=== PATIENT | female | born 1950 | race Caucasian/White ===

== ENCOUNTER 2018-11-15 11:34 | Inpatient (IN) | payer OTHER ==
[~2018-11-15] VITALS: Ht 165.1 cm; Wt 121.1 kg
[2018-11-15] MEDS ORDERED: NOVOLOG FL100 UNIT/M SUBQ ×2 (11:47→11:48)
[2018-11-15] MEDS ORDERED: METFORMIN HCL500 MG PO (11:47)
[2018-11-15] MEDS ORDERED: TRESIBA FL200 UNIT/1 SUBQ (11:48)
[2018-11-15] MEDS ORDERED: CRESTOR20 MG PO (11:49)
[2018-11-15] MEDS ORDERED: FENOFIBRATE200 MG PO (11:49)
[2018-11-15] MEDS ORDERED: COZAAR100 MG PO (11:49)
[2018-11-15] MEDS ORDERED: LASIX 40 MG TAB40 M2 PO (11:50)
[2018-11-15] MEDS ORDERED: ISOSORBIDE MONO60 M1 PO (11:50)
[2018-11-15] MEDS ORDERED: NITROGLYCERIN0.4 MG SUBLING (11:50)
[2018-11-15] MEDS ORDERED: DIPHENHIST50 MG PO (11:51)
[2018-11-15] MEDS ORDERED: VITAMIN D35000 UNI1 PO (11:51)
[2018-11-15] MEDS ORDERED: TOPROL XL50 MG PO (11:51)
[2018-11-15] MEDS ORDERED: ASPIR 8181 MG PO (11:51)
[2018-11-15] MEDS ORDERED: CVS DAILY GUM200 MCG PO (11:53)
[2018-11-15 12:16] LABS: ABSOLUTE BASOPHILS 0.1 thou/uL (0.0-0.2); ABSOLUTE EOSINOPHILS 0.2 thou/uL (0.0-0.7); ABSOLUTE LYMPHOCYTES 2.7 thou/uL (0.8-5.3); ABSOLUTE MONOCYTES 0.5 thou/uL (0.0-1.2); ABSOLUTE NEUTROPHILS 4.7 thou/uL (1.6-8.1); BASOPHILS 0.7 %; HEMATOCRIT 40.3 % (37.0-47.0); HEMOGLOBIN 13.3 gm/dL (12.0-15.0); LYMPHOCYTES 32.6 %; MCH 29.6 pg (26.0-34.0); MCV 89.9 fL (80.0-100.0); MONOCYTES 6.4 %; MPV 8.1 fl. (7.2-11.1); NUCLEATED RBCS 0 /100WBC; PLATELET COUNT* 257 thou/uL (150-400); POLYS 58.3 %; RBC 4.48 mil/uL (4.20-5.00); RDW-CV 13.9 % (10.5-14.5); WBC 8.1 thou/uL (4.0-11.0)
[2018-11-15 12:23] LABS: ANION GAP 12 mmol/L (7-16); BUN 22 mg/dL (7-18); CALCIUM 10.1 mg/dL (8.5-10.1); CHLORIDE 102 mmol/L (98-107); CO2 26 mmol/L (21-32); CREATININE 0.9 mg/dL (0.6-1.3); GLUCOSE 243 mg/dL (70-99); POTASSIUM 3.8 mmol/L (3.5-5.1); SODIUM 140 mmol/L (136-145)
[2018-11-15 12:34] LABS: ALKALINE PHOSPHATASE 114 U/L (46-116); APTT 29.4 Seconds (25.0-31.3); NT-PRO BRAIN NAT PEPTIDE 121 pg/mL (<300); PROTIME 10.1 Seconds (9.20-11.50); SGOT 27 U/L (15-37); SGPT 41 U/L (30-65); TOTAL BILIRUBIN 0.5 mg/dL (<0.1-1.0); TROPONIN-I LEVEL <0.06 ng/mL (<0.06)
[2018-11-15 12:38] LABS: BE -1.7 mmol/L (-2 to +3); PCO2 26.4 mmHg (35.0-45.0); PO2 94.1 mmHg (75.0-100.0); pH 7.497 (7.340-7.450)
[2018-11-15 12:50] LABS: URINE BILIRUBIN NEGATIVE (Negative); URINE BLOOD NEGATIVE (Negative); URINE CLARITY CLEAR; URINE COLOR YELLOW; URINE GLUCOSE-RANDOM 2+ (Negative); URINE KETONES NEGATIVE (Negative); URINE LEUKOCYTES-REFLEX NEGATIVE (Negative); URINE NITRITE-REFLEX NEGATIVE (Negative); URINE PROTEIN NEGATIVE (Negative); URINE SPECIFIC GRAVITY 1.015 (1.005-1.030); URINE UROBILINOGEN 0.2 E.U./dl (0.2-1.0)
--- NOTE | 2018-11-15 15:55 | EKG ---
[place] [address] ELECTROCARDIOGRAM REPORT Name: ISAIAS GARNICA Room: [place] [address] ADM IN [facility]#: [id number] Admission: 11/15/18 Attend Phys: Chaitanya Uriostegui MD Discharge: Date of : 50 Report #: [id number] THIS REPORT FOR: //name// [facility] ED Test Date: 2018-11-15 Test Time: 11:44:46 Pat Name: ISAIAS GARNICA Department: Room: [facility] Gender: F Signing Agent: : 1950 Requested By: Taurus Najera Order Number: [id number] MD: Duane Cortes Measurements Intervals [place] Rate: 81 P: 38 CA: 165 QRS: -57 QRSD: 103 T: 58 QT: 378 QTc: 439 Interpretive Statements Sinus rhythm Left anterior fascicular block Abnormal R-wave progression, late transition No previous ECG available for comparison Electronically Signed On 11-15-2018 15:54:53 CDT by Duane Cortes [email or web address] <ELECTRONICALLY SIGNED> By: Duane Cortes MD, [facility] 11/15/18 1554 1144 1144 Duane Cortes MD, [facility] /EPI
[2018-11-15 18:03] VITALS: BP 143/68
[2018-11-15 19:55] VITALS: BP 149/80
[2018-11-16] VITALS: BP 168/76
[2018-11-16 03:50] VITALS: BP 144/67
[2018-11-16 05:26] LABS: ABSOLUTE LYMPHOCYTES 2.7 thou/uL (0.8-5.3); ABSOLUTE MONOCYTES 0.7 thou/uL (0.0-1.2); ABSOLUTE NEUTROPHILS 7.4 thou/uL (1.6-8.1); BASOPHILS 0.4 %; HEMATOCRIT 39.9 % (37.0-47.0); HEMOGLOBIN 12.8 gm/dL (12.0-15.0); LYMPHOCYTES 24.9 %; MCH 29.1 pg (26.0-34.0); MCHC 32.2 g/dL (28.0-37.0); MCV 90.4 fL (80.0-100.0); MONOCYTES 6.1 %; MPV 9.1 fl. (7.2-11.1); NUCLEATED RBCS 0 /100WBC; PLATELET COUNT* 275 thou/uL (150-400); POLYS 68.6 %; RBC 4.41 mil/uL (4.20-5.00); WBC 10.8 thou/uL (4.0-11.0)
[2018-11-16 05:45] LABS: CALCIUM 9.8 mg/dL (8.5-10.1); CREATININE 0.7 mg/dL (0.6-1.3); POTASSIUM 3.6 mmol/L (3.5-5.1)
[2018-11-16 08:00] VITALS: BP 160/70
--- NOTE | 2018-11-16 13:26 | 2DMMODE ---
[place] [address] 2 D/M-MODE ECHOCARDIOGRAM Name: ISAIAS GARNICA Room: [address] IN [facility]#: [id number] Admission: 11/15/18 Attend Phys: Chaitanya Uriostegui, Discharge: Date of : 50 Date of Service: 11/16/18 1325 Report #: [id number] THIS REPORT FOR: //name// APPROVED REPORT Study performed: 11/16/2018 12:09:52 EXAM: Comprehensive 2D, Doppler, and color-flow Echocardiogram Patient Location: In-Patient Room #: [facility] Status: routine BSA: 2.18 HR: 66 bpm BP: 160/70 mmHg Rhythm: NSR Other Information Study Quality: Good Indications Pulmonary Embolism 2D Dimensions IVSd: 11.15 (7-11mm) LVOT Diam: 21.91 (18-24mm) LVDd: 50.31 mm PWd: 10.39 (7-11mm) Ascending Ao: 34.26 (22-36mm) LVDs: 36.56 (25-40mm) Aortic Root: 37.42 mm Volumes Left Atrial Volume (Systole) LA ESV Index: 29.10 mL/m2 Aortic Valve AoV Peak Garland.: 1.14 m/s AO Peak Gr.: 5.17 mmHg LVOT Max P.88 mmHg AO Mean Gr.: 3.25 mmHg LVOT Mean P.42 mmHg LVOT Max V: 0.85 m/s AO V2 VTI: 19.44 cm LVOT Mean V: 0.55 m/s YASIR (VTI): 3.58 cm2 LVOT V1 VTI: 18.44 cm Mitral Valve E/A Ratio: 0.70 MV Decel. Time: 327.37 ms MV E Max Garland.: 0.52 m/[place] [address] 2 D/M-MODE ECHOCARDIOGRAM Name: ISAIAS GARNICA [place] Room: [address] IN [facility]#: [id number] Admission: 11/15/18 Attend Phys: Chaitanya Uriostegui, Discharge: Date of : 50 Date of Service: 11/16/18 1325 Report #: [id number] MV PHT: 94.94 ms MVA (PHT): 2.32 cm2 TDI E/Lateral E': 5.20 E/Medial E': 5.78 Medial E' Garland.: 0.09 m/s Lateral E' Garland.: 0.10 m/s Pulmonary Valve PV Peak Garland.: 1.06 m/s PV Peak Gr.: 4.50 mmHg Tricuspid Valve RAP Estimate: 5.00 mmHg TR Peak Gr.: 15.94 mmHg RVSP: 21.00 mmHg PA Pressure: 21.00 mmHg Left Ventricle The left ventricle is normal size. There is normal LV segmental wall motion. Mild concentric left ventricular hypertrophy. Left ventricular systolic function is normal. The left ventricular ejection fraction is within the normal range. LVEF is 55-60%. Grade I - abnormal relaxation pattern. Right Ventricle The right ventricle is normal size. The right ventricular systolic function is normal. Atria The left atrium size is normal. The right atrium size is normal. Aortic Valve Mild aortic valve sclerosis. No aortic regurgitation is present. There is no aortic valvular stenosis. Mitral Valve The mitral valve is normal in structure. There is no mitral valve regurgitation noted. No evidence of mitral valve stenosis. Tricuspid Valve The tricuspid valve is normal in structure. Trace tricuspid regurgitation. No pulmonary hypertension. Pulmonic Valve The pulmonary valve is normal in structure. [place] [address] 2 D/M-MODE ECHOCARDIOGRAM Name: ISAIAS GARNICA Room: [address]#: [id number] Admission: 11/15/18 Attend Phys: Chaitanya Uriostegui, Discharge: Date of : 50 Date of Service: 11/16/18 1325 Report #: [id number] Great Vessels The aortic root is normal in size. IVC is not visualized. Pericardium There is no pericardial effusion. <Conclusion> The left ventricle is normal size. Mild concentric left ventricular hypertrophy. Left ventricular systolic function is normal. The left ventricular ejection fraction is within the normal range. LVEF is 55-60%. Grade I - abnormal relaxation pattern. The right ventricle is normal size. The left atrium size is normal. Mild aortic valve sclerosis. No aortic regurgitation is present. There is no aortic valvular stenosis. The mitral valve is normal in structure. The tricuspid valve is normal in structure. There is no pericardial effusion. There is normal LV segmental wall motion. <ELECTRONICALLY SIGNED> By: Suman Hernadez MD, [facility] 11/16/18 1325 1325 1325 Suman Hernadez MD, FACC /INF
[2018-11-16 16:31] VITALS: BP 119/57
[2018-11-16 20:00] VITALS: BP 126/58
[2018-11-17] VITALS: BP 146/73
[2018-11-17 03:48] VITALS: BP 149/69
[2018-11-17 08:00] VITALS: BP 131/87
[2018-11-17 11:38] VITALS: BP 131/71
[2018-11-17 16:00] VITALS: BP 131/70
[2018-11-17 20:00] VITALS: BP 115/79
[2018-11-18] VITALS: BP 135/71
[2018-11-18 03:59] VITALS: BP 157/71
[2018-11-18 08:00] VITALS: BP 138/69
[2018-11-18] MEDS ORDERED: XARELTO15 MG PO (11:12)
[2018-11-18] MEDS ORDERED: XARELTO20 MG PO (11:13)
[2018-11-18] MEDS ORDERED: PROTONIX40 M1 PO (11:16)
[2018-11-18 11:17] VITALS: BP 138/69
[2018-11-18] MEDS ORDERED: CEFDINIR300 MG PO (11:17)
== END 2018-11-18 15:47 | disposition home or self-care (01) | DRG 175 ==
LOC: M.ERS 11:34 → M.2W 13:40 → M.TBA-ER 13:40 → M.2W 18:24
PROVIDERS: Family Medicine; ADMIT Internal Medicine
DX: I26.99 Other pulmonary embolism without acute cor pulmonale (principal); J96.00 Acute respiratory failure, unspecified whether with hypoxia or hypercapnia; Z68.41 Body mass index [BMI] 40.0-44.9, adult; E11.9 Type 2 diabetes mellitus without complications; I10 Essential (primary) hypertension; J20.9 Acute bronchitis, unspecified; J32.9 Chronic sinusitis, unspecified; E66.01 Morbid (severe) obesity due to excess calories; Z79.82 Long term (current) use of aspirin; Z79.899 Other long term (current) drug therapy; I25.2 Old myocardial infarction; Z95.5 Presence of coronary angioplasty implant and graft; Z88.8 Allergy status to other drugs, medicaments and biological substances

== ENCOUNTER 2020-02-10 15:46 | Inpatient (IN) | payer MEDICARE ==
[~2020-02-10] VITALS: Ht 170.2 cm; Wt 109.8 kg
--- NOTE | ~2020-02-10 | PROC ---
[address] [address] PROCEDURE REPORT Name: ISAIAS GARNICA Room: [address] IN M.R.#: [id number] Admission: 02/10/20 Attend Phys: Gina Delarosa Discharge: 02/14/20 Date of : 50 Report #: [id number] THIS REPORT FOR: //name// cc: Anastasia Medina MD, Paula V. MD ~ THIS REPORT FOR: //name// For GI report, please see the Provation report in Perceptive 7 content. By: [facility]6Medical Records Staff [facility] /PAUL
[~2020-02-10 15:46] MED LIST: ASPIR 8181 MG PO; CEFDINIR300 MG PO; COZAAR100 MG PO; CRESTOR20 MG PO; CVS DAILY GUM200 MCG PO; DIPHENHIST50 MG PO; FENOFIBRATE200 MG PO; ISOSORBIDE MONO60 M1 PO; LASIX 40 MG TAB40 M2 PO; METFORMIN HCL500 MG PO; NITROGLYCERIN0.4 MG SUBLING; NOVOLOG FL100 UNIT/M SUBQ; PROTONIX40 M1 PO; TOPROL XL50 MG PO; TRESIBA FL200 UNIT/1 SUBQ; VITAMIN D35000 UNI1 PO; XARELTO15 MG PO; XARELTO20 MG PO
[2020-02-10 15:54] VITALS: BP 180/88
[2020-02-10] MEDS ORDERED: SPIRONOLACTONE25 M1 PO (16:01)
[2020-02-10] MEDS ORDERED: IBUPROFEN 800800 M1 PO (16:01)
[2020-02-10] MEDS ORDERED: NEURONTIN 300M300 M2 PO (16:01)
[2020-02-10] MEDS ORDERED: VITAMIN C125 MG PO (16:02)
[2020-02-10] MEDS ORDERED: BENADRYL25 MG PO (16:02)
[2020-02-10 16:25] LABS: ABSOLUTE BASOPHILS 0.1 thou/uL (0.0-0.2); ABSOLUTE EOSINOPHILS 0.1 thou/uL (0.0-0.7); ABSOLUTE LYMPHOCYTES 1.9 thou/uL (0.8-5.3); ABSOLUTE MONOCYTES 0.4 thou/uL (0.0-1.2); ABSOLUTE NEUTROPHILS 3.9 thou/uL (1.6-8.1); BASOPHILS 0.8 %; EOSINOPHILS 1.9 %; HEMOGLOBIN 13.1 gm/dL (12.0-15.0); LYMPHOCYTES 29.2 %; MCH 28.5 pg (26.0-34.0); MCHC 32.8 g/dL (28.0-37.0); MCV 86.8 fL (80.0-100.0); MONOCYTES 6.9 %; MPV 7.3 fl. (7.2-11.1); NUCLEATED RBCS 0 /100WBC; PLATELET COUNT* 346 thou/uL (150-400); POLYS 61.2 %; RDW-CV 14.9 % (10.5-14.5); WBC 6.4 thou/uL (4.0-11.0)
[2020-02-10 16:31] LABS: CALCIUM 9.3 mg/dL (8.5-10.1); CREATININE 0.7 mg/dL (0.6-1.3); POTASSIUM 3.9 mmol/L (3.5-5.1)
[2020-02-10 16:41] LABS: APTT 26.4 Seconds (25.0-31.3); PROTIME 10.7 Seconds (9.20-11.50)
[2020-02-10 16:44] LABS: ALBUMIN 3.3 g/dL (3.4-5.0); CK-MB MASS 0.9 ng/mL (<0.5-3.6); MAGNESIUM 1.6 mg/dL (1.8-2.4); TOTAL BILIRUBIN 0.4 mg/dL (<0.1-1.0); TOTAL PROTEIN 7.9 g/dL (6.4-8.2)
[2020-02-10 19:55] VITALS: BP 161/85
[2020-02-10 20:09] VITALS: BP 170/98
[2020-02-10 23:24] VITALS: BP 154/71
[2020-02-11 04:00] VITALS: BP 146/62
[2020-02-11 08:00] VITALS: BP 105/45
[2020-02-11 12:37] LABS: % SATURATION 18 % (20-39); IRON 56 ug/dL (50-175)
[2020-02-11 13:01] VITALS: BP 161/74
--- NOTE | 2020-02-11 13:01 | EKG ---
[place] [address] ELECTROCARDIOGRAM REPORT Name: ISAIAS GARNICA Room: [address] IN [facility].#: [id number] Admission: 02/10/20 Attend Phys: Braydon Aragon Discharge: Date of : 50 Date of Service: 02/10/20 1551 Report #: [id number] THIS REPORT FOR: //name// [facility] ED Test Date: 2020-02-10 Test Time: 15:51:07 Pat Name: ISAIAS GARNICA Department: Room: [facility] Gender: F Honing Machine Operator Tool: SURINDER : 1950 Requested By: Taurus Najera Order Number: [id number] MD: Duane Cortes Measurements Intervals [place] Rate: 99 P: 72 MN: 155 QRS: -46 QRSD: 102 T: 68 QT: 340 QTc: 437 Interpretive Statements Sinus tachycardia Ventricular premature complex Left anterior fascicular block Minimal ST depression, lateral leads Baseline wander in lead(s) V1,V4 Compared to ECG 11/15/2018 11:44:46 Ventricular premature complex(es) now present ST (T wave) deviation now present Sinus rhythm no longer present Electronically Signed On 02-11-2020 13:01:00 CDT by Duane Cortes [email or web address] <ELECTRONICALLY SIGNED> By: Duane Cortes MD, [facility] 02/11/20 1301 1551 1551 Duane Cortes MD, FAC /EPI
--- NOTE | 2020-02-11 13:47 | CON ---
[address] [address] CONSULTATION Name: ISAIAS GARNICA Room: [address] IN .R.#: [id number] Admission: 02/10/20 Attend Phys: Gina Delarosa Discharge: Date of : 50 Report #: [id number] THIS REPORT FOR: //name// cc: Anastasia Medina MD, Paula V. MD ~ THIS REPORT FOR: //name// CC: Braydon GOOD DO INDICATION: Chest discomfort. HISTORY OF PRESENT ILLNESS: The patient is a very pleasant 69-year-old with a history of myocardial infarction in 02/2010 at which time she had a drug-eluting stent placed to the circumflex coronary artery. She had nonocclusive disease noted otherwise. She has followed regularly with Cardiology since. Three years ago in the episode of recurrent pain, she was placed on Ranexa transiently. A stress test at that time was unremarkable. She reports having angiography on 2 occasions since her initial stent placement, the most recent 7 years ago, which showed that the nonocclusive disease was stable and the stent is widely patent. There is no history of heart failure. Risk factors include type 2 diabetes mellitus, hypertension, dyslipidemia, and family history. She is a lifelong nonsmoker. The patient presented to the hospital with decreased urine output, increased abdominal girth and swelling as well as lower extremity swelling and chest pressure with some radiation to the left arm. The patient was given a sublingual nitroglycerin in the Emergency Room with partial relief of her discomfort. She was then given morphine with complete relief of her pain. She has had no recurrent pain overnight. Her EKG was unremarkable. Serial troponins are unremarkable. Abdominal ultrasound and CT suggests the possibility of cirrhosis from fatty liver. She does have ascites. PAST MEDICAL HISTORY: 1. Coronary artery disease as outlined above. 2. Hyperlipidemia. 3. Hypertension. 4. Type 2 diabetes mellitus. 5. History of pulmonary embolism 2019. 6. History of left ankle fracture with pinning. FAMILY HISTORY: Positive for coronary artery disease in the [place] [address] CONSULTATION Name: ISAIAS GARNICA Room: [address]#: [id number] Admission: 02/10/20 Attend Phys: Gina Delarosa Discharge: Date of : 50 Report #: [id number] SOCIAL HISTORY: The patient is a lifelong nonsmoker. She does not drink alcohol. ALLERGIES: LISINOPRIL, WHICH CAUSES A COUGH. HOME MEDICATIONS: Losartan 100 mg daily, furosemide 40 mg daily, metoprolol succinate 50 mg daily, aspirin 81 mg daily, spironolactone 25 mg daily, Neurontin 300 mg b.i.d., ibuprofen 800 mg b.i.d., Benadryl 25 mg p.r.n., vitamin C 125 mg daily, metformin 500 mg as directed, sliding scale insulin a.c. and at bedtime, Tresiba insulin 55 units subcutaneous b.i.d., fenofibrate 200 mg daily, Crestor 20 mg daily, Imdur 30 mg daily, Nitrostat sublingual p.r.n., vitamin D3 5000 units daily, multivitamin with folate 2 tablets daily. REVIEW OF SYSTEMS: A 14-point review of systems is positive for seizures as a child, chest discomfort and dyspnea on exertion, lower extremity edema, diabetes, history of PE in 11/2018, seasonal medical allergies outlined above, arthritis. Otherwise, 14-point review of systems was unremarkable. PHYSICAL EXAMINATION: VITAL SIGNS: Blood pressure 146/62, pulse is 73. GENERAL: This is a pleasant female in no distress. Mood and affect appropriate. HEENT: Head is normocephalic, atraumatic. Extraocular muscles intact. Mucous membranes moist. NECK: Shows no jugular venous distention. There are no carotid bruits. CHEST: Reveals clear lung cotton without wheezes or rales. CARDIOVASCULAR: Reveals a regular rhythm with no gallop or murmur. ABDOMEN: Reveals a protuberant abdomen with fluid wave. No tenderness. EXTREMITIES: Shows 1-2+ edema to the knees bilaterally. SKIN: Dry. LABORATORY DATA: A 12-lead EKG shows sinus rhythm without acute ST or T-wave abnormality. Labs are reviewed. Troponins are unremarkable x 3 sets. IMPRESSION AND RECOMMENDATIONS: 1. Chest pain without findings to suggest acute coronary syndrome. We will proceed with echocardiogram and noninvasive stress testing. Further intervention will be pending the results of that study. 2. Coronary artery disease. Continue aspirin and risk factor modification. 3. Hypertension. Blood pressure adequately controlled on home regimen at this time. 4. Dyslipidemia. The patient's lipid profile in November showed a total cholesterol 106, triglycerides 124, HDL 34, and LDL 47. Continue current regimen. [address] [place] [address] CONSULTATION Name: ISAIAS GARNICA Room: [address] IN .R.#: [id number] Admission: 02/10/20 Attend Phys: Gina Delarosa Discharge: Date of : 50 Report #: [id number] 5. Ascites and volume overload, possibly due to liver failure. The patient is being evaluated by Gastroenterology. <ELECTRONICALLY SIGNED> By: Duane Cortes MD, FACC 02/11/20 1347 1158 1246Duane Cortes MD, FACC /nt
[2020-02-11 16:11] VITALS: BP 153/71
[2020-02-11 19:30] VITALS: BP 114/70
[2020-02-12] VITALS: BP 124/59
[2020-02-12 04:39] LABS: APTT 27.5 Seconds (25.0-31.3); PROTIME 10.7 Seconds (9.20-11.50)
[2020-02-12 04:59] VITALS: BP 143/70
[2020-02-12 05:06] LABS: GLYCOHEMOGLOBIN (HGB A1C) 6.6 % (4.8-5.6)
[2020-02-12 08:00] VITALS: BP 139/64
[2020-02-12 12:07] VITALS: BP 154/83
--- NOTE | 2020-02-12 13:58 | 2DMMODE ---
[place] [address] 2 D/M-MODE ECHOCARDIOGRAM Name: ISAIAS GARNICA Room: [address] IN .R.#: [id number] Admission: 02/10/20 Attend Phys: Braydon Aragon Discharge: Date of : 50 Date of Service: 02/12/20 1358 Report #: [id number] THIS REPORT FOR: cc: Anastasia Medina MD,Anastasia Hernadez,Suman Herrmann MD [facility] ~ APPROVED REPORT Study performed: 02/12/2020 11:11:46 EXAM: Comprehensive 2D, Doppler, and color-flow Echocardiogram Patient Location: Out-Patient BSA: 2.22 HR: 73 bpm BP: 139/64 mmHg Other Information Study Quality: Fair Indications CAD 2D Dimensions IVSd: 11.40 (7-11mm) LVOT Diam: 20.53 (18-24mm) LVDd: 43.45 mm PWd: 10.32 (7-11mm) Ascending Ao: 34.21 (22-36mm) LVDs: 29.30 (25-40mm) Aortic Root: 34.94 mm Volumes Left Atrial Volume (Systole) LA ESV Index: 16.60 mL/m2 Aortic Valve AoV Peak Garland.: 0.92 m/s AO Peak Gr.: 3.36 mmHg LVOT Max P.53 mmHg AO Mean Gr.: 1.89 mmHg LVOT Mean P.27 mmHg LVOT Max V: 0.80 m/s AO V2 VTI: 19.98 cm LVOT Mean V: 0.52 m/s YASIR (VTI): 2.94 cm2 LVOT V1 VTI: 17.72 cm Mitral Valve E/A Ratio: 0.66 [place] [address] 2 D/M-MODE ECHOCARDIOGRAM Name: ISAIAS GARNICA Room: [address] IN [facility]#: [id number] Admission: 02/10/20 Attend Phys: Braydon Aragon Discharge: Date of : 50 Date of Service: 02/12/20 1358 Report #: [id number] MV Decel. Time: 327.37 ms MV E Max Garland.: 0.47 m/s MV PHT: 94.94 ms MVA (PHT): 2.32 cm2 TDI E/Lateral E': 4.27 E/Medial E': 5.88 Medial E' Garland.: 0.08 m/s Lateral E' Garland.: 0.11 m/s Pulmonary Valve PV Peak Garland.: 0.93 m/s PV Peak Gr.: 3.43 mmHg Tricuspid Valve RAP Estimate: 5.00 mmHg TR Peak Gr.: 25.69 mmHg RVSP: 30.69 mmHg PA Pressure: 30.69 mmHg Left Ventricle The left ventricle is normal size. There is normal LV segmental wall motion. There is normal left ventricular wall thickness. Left ventricular systolic function is normal. The left ventricular ejection fraction is within the normal range. LVEF is 55-60%. Grade I - abnormal relaxation pattern. Right Ventricle The right ventricle is normal size. The right ventricular systolic function is normal. Atria The left atrium size is normal. The right atrium size is normal. Aortic Valve Mild aortic valve sclerosis. No aortic regurgitation is present. There is no aortic valvular stenosis. Mitral Valve The mitral valve is normal in structure. There is no mitral valve regurgitation noted. No evidence of mitral valve stenosis. Tricuspid Valve The tricuspid valve is normal in structure. Mild tricuspid regurgitation. [place] [address] 2 D/M-MODE ECHOCARDIOGRAM Name: ISAIAS GARNICA Room: [address]#: [id number] Admission: 02/10/20 Attend Phys: Braydon Aragon Discharge: Date of : 50 Date of Service: 02/12/20 1358 Report #: [id number] The pulmonary valve is normal in structure. There is no pulmonic valvular regurgitation. Great Vessels The aortic root is normal in size. IVC is normal in size and collapses >50% with inspiration. Pericardium There is no pericardial effusion. <Conclusion> The left ventricle is normal size. Left ventricular systolic function is normal. The left ventricular ejection fraction is within the normal range. LVEF is 55-60%. Grade I - abnormal relaxation pattern. The left atrium size is normal. Mild aortic valve sclerosis. No aortic regurgitation is present. There is no aortic valvular stenosis. The mitral valve is normal in structure. The tricuspid valve is normal in structure. Mild tricuspid regurgitation. IVC is normal in size and collapses >50% with inspiration. There is no pericardial effusion. There is normal LV segmental wall motion. <ELECTRONICALLY SIGNED> By: Suman Hernadez MD, FACC 02/12/20 1358 1358 1358 Suman Hernadez MD, FACC /INF
[2020-02-12 14:07] LABS: HEPATITIS B SURFACE AG Negative (Negative)
--- NOTE | 2020-02-12 14:13 | EKG ---
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1950 Requested By: Taurus Najera Order Number: [id number] Sage MD: Suman Hernadez Measurements Intervals [place] Rate: 94 P: 56 RI: 159 QRS: -45 QRSD: 99 T: 51 QT: 341 QTc: 427 Interpretive Statements Sinus rhythm Left anterior fascicular block Consider anterior infarct Compared to ECG 02/10/2020 15:51:07 Slight R wave regression V2 to V3 persists Sinus tachycardia no longer present Ventricular premature complex(es) no longer present ST (T wave) deviation no longer present Electronically Signed On 02-12-2020 14:13:41 CDT by Suman Hernadez [email or web address] <ELECTRONICALLY SIGNED> By: Suman Hernadez MD, [facility] 02/12/20 1413 1551 1551 Suman Hernadez MD, [facility] /EPI
--- NOTE | 2020-02-12 15:35 | CON ---
[address] [address] CONSULTATION Name: ISAIAS GARNICA Room: [address] IN .R.#: [id number] Admission: 02/10/20 Attend Phys: Gina Delarosa Discharge: Date of : 50 Report #: [id number] THIS REPORT FOR: //name// cc: Anastasia Medina MD, Paula V. MD ~ THIS REPORT FOR: //name// CC: Braydon Medina DATE OF SERVICE: 02/11/2020 HISTORY OF PRESENT ILLNESS: This is a pleasant 69-year-old female with past medical history significant for hypertension, hyperlipidemia, and diabetes, who presented to the hospital for evaluation of left-sided chest pain. As a part of routine evaluation, she also underwent a CT abdomen for abdominal distention and was noted to have cirrhosis. The GI service has been consulted for evaluation of this. The patient reports increased abdominal distention over the last 2 weeks. This made breathing difficult for her. She denies any specific abdominal pain. She does report nausea, no vomiting. The patient's weight has been stable. The patient denies episodes of jaundice or confusion. She also denies any hematemesis or hematochezia. The patient's last colonoscopy was 8 years back. PAST MEDICAL HISTORY: Hypertension, hyperlipidemia, and diabetes. PAST SURGICAL HISTORY: The patient has history of gastric sleeve surgery. SOCIAL HISTORY: The patient denies smoking, alcohol or recreational drug use. FAMILY HISTORY: No family history of colon cancer or liver disease. REVIEW OF SYSTEMS: Comprehensive 10-point review of systems is negative except for what was mentioned in the HPI. PHYSICAL EXAMINATION: VITAL SIGNS: Temperature 36.6, pulse rate 73, respiratory rate 16, blood pressure 146/62, and pulse ox 99% on room air. GENERAL: The patient is alert, awake, and oriented x 3. There is no asterixis. No spider angiomata. No scleral icterus. HEENT: Pupils are equal and round. Mucous membranes are moist. There is no congestion. LUNGS: Clear to auscultation bilaterally. CARDIOVASCULAR: Rate and rhythm regular. S1, S2 present. ABDOMEN: Soft, mildly distended. EXTREMITIES: Warm, 2+ [place] [address] CONSULTATION Name: ISAIAS GARNICA Room: [address] IN [facility]#: [id number] Admission: 02/10/20 Attend Phys: Gina Delarosa Discharge: Date of : 50 Report #: [id number] LABORATORY DATA: Hemoglobin 13.1, hematocrit 40.0, platelet count 346, and WBC count 6.4. Sodium 139, potassium 3.9, chloride 105, bicarbonate 28, BUN 11, creatinine 0.7, total bilirubin 0.4, AST 87, ALT 41, alkaline phosphatase 87. INR 1. IMAGING STUDIES: Abdominal ultrasound, technically difficult exam due to large body habitus, large amount of abdominal ascites, cholelithiasis. ASSESSMENT AND PLAN: Pleasant 69-year-old female with history outlined above, presenting for evaluation of abdominal distention and chest pain. The patient incidentally found to have cirrhosis. 1. Cirrhosis. This is the first time patient was diagnosed with cirrhosis. Discussed the possible cause of her cirrhosis as nonalcoholic steatohepatitis. We will get chronic liver disease evaluation. 2. Varices due to portal hypertension. I would recommend getting an esophagogastroduodenoscopy tomorrow to evaluate varices. 3. Ascites. We will get a diagnostic and therapeutic paracentesis tomorrow to confirm the cause of the ascites. 4. There is no evidence of encephalopathy. 5. No masses noted on imaging. We will need to follow up with her in the GI clinic in 4-8 weeks' time. Thanks for this consultation. <ELECTRONICALLY SIGNED> By: Selwyn Mcdonough MD 02/12/20 1535 1153 [id number] Mcdonough MD /nt
[2020-02-12 16:36] LABS: BF RBC 3913 /mm3; TOTAL CELL COUNT 1780 /mm3
[2020-02-12 16:37] LABS: CLARITY HAZY; TOTAL VOLUME 4360 ml
[2020-02-12 16:38] LABS: SOURCE ASCITES
[2020-02-12 16:42] VITALS: BP 155/71
[2020-02-12 16:55] LABS: BF LYMPHOCYTES 92 %; BF MONOCYTES 5 %; BF POLYS 3 %; BF TISSUE 15 /100 WBC
[2020-02-12 19:45] VITALS: BP 156/84
[2020-02-13] VITALS (19 sets, daily range): BP systolic 124–190; BP diastolic 53–94
[2020-02-13 02:06] LABS: HEPATITIS B SURFACE AG Negative (Negative)
[2020-02-13 13:08] LABS: BODY FLUID PROTEIN 5.2 g/dL (())
[2020-02-13 14:07] LABS: ANA INTERPRETATION Negative (Negative)
--- NOTE | 2020-02-13 16:34 | CARDNUC ---
[place] [address] CARDIAC NUCLEAR IMAGING REPORT Name: ISAIAS GARNICA Room: [address] IN [facility]#: [id number] Admission: 02/10/20 Attend Phys: Braydon Aragon Discharge: Date of : 50 Date of Service: 02/13/20 1634 Report #: [id number] THIS REPORT FOR: cc: Anastasia Medina MD, Paula V. MD Liston, Michael J. MD [facility] ~ APPROVED REPORT Imaging Protocol: Stress Tc-99m/Rest Tc-99m 2 days Study performed: 02/11/2020 12:04:00 Indication: Chest pain, Fluid overload. Patient Location: In-Patient Room #: 220 Stress Tech: Duyen Liu Stress Nurse: Emelina Woodall RN NM Tech:MEDINA Burks Ht: 5 ft 7 in Wt: 250 lbs BSA: 2.22 m2 BMI: 39.15 Medical History Medical History: Angina, CAD s/p TN, CAD s/p stent, Diabetic Noninsulin, HTN, Dyslipidemia, PE, LAFB, Ascites, Left ankle FX/pinning, Obesity, LE edema. Medications: ASA 81 Mg, Lasix, NTG, Spironolactone, Metoprolol, Losartan, Imdur, Fenofibrate, Atorvastatin. Allergies: Lisinopril. Cardiac Risk Factors: Age, Diabetes (non-insulin), FHX of CAD, HTN, Dyslipidemia, LAFB, Edema, Obesity. Previous Cardiac Procedures: Myocardial infarction, PCI. Pretest Chest Pain Characteristics: No chest pain Exercise History: Sedentary Physical Disabilities: Obesity, Left ankle pain/weaness, fluid overload, generalized weakness. Meds Held (24 hrs): NTG, Metoprolol, Imdur. Resting Data Rest SPECT myocardial perfusion imaging was performed in supine position 30 minutes following the intravenous injection of 30.3 mCi of Tc-99m Sestamibi. Time of rest injection: 949 Date: 02/13/2020 The images were gated to evaluate regional wall motion and calculate [place] [address] CARDIAC NUCLEAR IMAGING REPORT Name: ISAIAS GARNICA Room: [address]#: [id number] Admission: 02/10/20 Attend Phys: Braydon Aragon Discharge: Date of : 50 Date of Service: 02/13/20 1634 Report #: [id number] Administration Route: IV Administration Site: Right Wrist Pharmacologic Stress Pharmacologic stress test was performed by injecting Regadenoson 0.4 mg IV push over 10-15 seconds immediately followed by the intravenous injection of 31.6 mCi of Tc-99m Sestamibi. Time of stress injection: 1325 Date: 02/12/2020 Administration Route: IV Administration Site: Right Wrist Gated Stress SPECT was performed 40 minutes after stress injection. The images were gated to evaluate regional wall motion and calculate left ventricular ejection fraction. Stress only was performed in the Supine position. Stress Test Details Stress Test: Pharmacologic stress testing performed using 0.4 mg of regadenoson per 5 mL given IV over 10 seconds. Reason for pharmacologic stress test: Obesity, Left ankle pain/weaness, fluid overload, generalized weakness.. 60 mg caffeine given for other. HR Max Heart Rate (APMHR): 151 bpm Resting HR: 75 bpm Target HR (85% APMHR): 128 bpm Max HR Achieved: 99 bpm % of APMHR: 65 Recovery HR: 86 bpm BP Resting BP: 143/85 mmHg Max BP: 134/68 mmHg Recovery BP: 140/76 mmHg ECG Resting ECG: Sinus Rhythm Stress ECG: Sinus Rhythm ST Change: None Arrhythmia: None Recovery ECG: Sinus Rhythm Recovery ST Change: None Recovery Arrhythmia: None Clinical Reason for Termination: Completed protocol Stress Symptoms: Dyspnea, lightheaded, headache, chest pressure/ache 5/10. Exercise duration: 00 min 00 [place] [address] CARDIAC NUCLEAR IMAGING REPORT Name: ISAIAS GARNICA Room: [address]#: [id number] Admission: 02/10/20 Attend Phys: Braydon Aragon Discharge: Date of : 50 Date of Service: 02/13/20 1634 Report #: [id number] Exercise capacity: 1.00 METs Nurse Comments A 69 year old female inpatient presented for a sitting Lexiscan r/t chest pain and fluid retention. Test well tolerated. Recovery unremarkable. Patient was escorted via wheelchair by staff to Nuclear Medicine for imaging. Patient was stable and stated she felt good at that time. 60 Mg IV caffeine was administered during recovery due to additional procedures that required patient NPO. Study Quality Study: Good Artifact: No artifact Study Data At rest, the left ventricular ejection fraction was 73%.. Post stress, the left ventricular ejection was 52%.. Perfusion Perfusion images show a large in size moderate in intensity reversible defect involving the basal to mid inferior wall. Wall Motion Gated study show wall motion abnormality involving the inferoseptal wall. Global LV systolic function is fairly well-preserved. Nuclear Conclusion ECG Findings: negative for ischemia Clinical Findings: negative for ischemia Nuclear Findings: positive for ischemia Exercise Capacity: not assessed Left Ventricular Function: abnormal Risk Study: high Perfusion study suggest stress-induced ischemia of the inferior wall. Left ventricular systolic function is mildly decreased. This is a high risk study. <ELECTRONICALLY SIGNED> By: Duane Cortes MD, FACC 02/13/20 1634 1634 1634 Duaen Cortes MD, FACC /INF
[2020-02-13] MEDS ORDERED: EFFIENT10 MG PO (17:27)
[2020-02-14 04:00] VITALS: BP 156/78
[2020-02-14 04:32] LABS: ALBUMIN 2.8 g/dL (3.4-5.0); CALCIUM 8.6 mg/dL (8.5-10.1); CREATININE 0.7 mg/dL (0.6-1.3); POTASSIUM 3.1 mmol/L (3.5-5.1); TOTAL BILIRUBIN 0.5 mg/dL (<0.1-1.0); TOTAL PROTEIN 6.8 g/dL (6.4-8.2)
[2020-02-14 04:39] LABS: HEMATOCRIT 35.9 % (37.0-47.0); HEMOGLOBIN 11.8 gm/dL (12.0-15.0); MCH 28.5 pg (26.0-34.0); MCV 86.2 fL (80.0-100.0); MPV 7.3 fl. (7.2-11.1); RBC 4.16 mil/uL (4.20-5.00); WBC 5.8 thou/uL (4.0-11.0)
[2020-02-14 08:30] VITALS: BP 143/62
--- NOTE | 2020-02-14 09:52 | CARD ---
[address] [address] CARDIAC CATH REPORT Name: ISAIAS GARNICA Room: [address] IN [facility].#: [id number] Admission: 02/10/20 Attend Phys: Gina Delarosa Discharge: Date of : 50 Report #: [id number] THIS REPORT FOR: //name// cc: Anastasia Medina MD, Paula V. MD ~ APPROVED REPORT Study performed: 02/13/2020 13:12:30 Patient Details Patient Status: In-Patient Room #: The patient is a 69 year-old female Event Personnel Duane Cortes Conventional Machinist, [place] RN RN, Surya BootheIS Scrub, Nae Reeves RTR Monitor, Suman Hernadez Corporate Travel Agent Procedures Performed Art Access - R femoral arteryArt Access - R radial artery Left Heart Cath w/or w/o Coronaries IVAN Place w/wo Plasty Single LAD IVAN Place w/wo Plasty Addl BR OM 1 Hemostasis with Hemoband Hemostasis w/ Mynx Admission/Lab Medications/Medications given during procedure Oxygen Nasal cannula 2 l per min, 0.9% Sodium Chloride IV 75 ml per hr, Lidocaine Subcut 5 ml, Fentanyl IV 25 mcg, Midazolam (Versed) IV 1 mg, Nitroglycerin IA 200 mcg, Verapamil IA 2.5 mg, Lopressor IV 5 mg, Nitroglycerin IC 200 mcg, Verapamil IC 2.5 mcg, Lidocaine Subcut 10 ml, Nitroglycerin SL 4 mg, Angiomax IV 16 ml, Angiomax Drip IV 37.1 ml per hr, Aspirin PO 162 mg, Effient PO 60 mg Procedure Narrative The patient was brought urgently to the Cardiac Catheterization Laboratory and was prepped and draped in a sterile manner. The right wrist and right femoral artery was infiltrated with 2% Lidocaine subcutaneous anesthesia. A Slender Glidesheath sheath was inserted into the right radial artery. Coronary angiography was performed using coronary diagnostic catheters. The right coronary system was accessed and visualized with a Diagnostic 5 Fr Tig 4.0 catheter. The left coronary system was accessed and visualized with a Diagnostic 5 Fr Tig 4.0 catheter. The left ventricle was accessed and visualized with a Diagnostic 6 Fr Pigtail catheter. Left ventricular/Aortic Valve gradient assessed via catheter pullback. Closure device was deployed with a Fr MynxGrip 6/7F and Reg [place] [address] CARDIAC CATH REPORT Name: ISAIAS GARNICA [place] Room: [address] IN ..#: [id number] Admission: 02/10/20 Attend Phys: Gina Delarosa Discharge: Date of : 50 Report #: [id number] tolerated the procedure well and there were no complications associated with the procedure. There was no hematoma. For intervention a [employer] 6 Fr sheath was inserted into the right femoral artery. Intraoperative Conscious Sedation Sedation start time: 13:50 Case end Time: 14:53 Fentanyl 25 mcg Versed 2 mg Fluoro Time: 18.9 minutes Dose: DAP 173878 cGycm2 2993 mGy Contrast Type and Amount: Visipaque 340 ml Diagnostic Cath Left Main Left main coronary artery appears normal. LAD The left anterior descending coronary artery has a patent stent proximally. There appears to be a focal 80% stenoses in the midportion of the vessel. The distal vessel appears moderately plaqued without hemodynamically significant stenoses. Diagonal 1 A moderate-sized first diagonal branch is plaqued. Diagonal 2 A moderate sized second diagonal branch has a 50% narrowing proximally. Circumflex The circumflex coronary artery has a widely patent stent proximally. The mid and distal vessel are moderately plaqued without significant stenoses. OM1 A large and branched first obtuse marginal branch has a 90% narrowing in the midportion. OM2 A small second obtuse marginal branch is diffusely moderately plaqued without significant stenoses. Right Coronary A large and dominant right coronary artery has moderate 40% narrowing proximally. The mid vessel is moderately plaqued without hemodynamically significant stenoses. Distally there is a focal 90% stenosis. R PDA The PDA appears moderately diffusely plaqued without significant stenoses. Left Ventriculography Left Ventriculography was not performed. Hemodynamics The aortic pressure is 132/60 mmHg with a mean of 86 mmHg. The left ventricular pressure is 138/11 mmHg with a mean of mmHg. The left ventricular end diastolic pressure is 21 [place] [address] CARDIAC CATH REPORT Name: ISAIAS GARNICA Room: [address] IN [facility].#: [id number] Admission: 02/10/20 Attend Phys: Gina Delarosa Discharge: Date of : 50 Report #: [id number] PCI Technique Lesion Anticoagulation was achieved with Angiomax Drip. Patient was preloaded with Angiomax IV 16 ml. Percutaneous coronary intervention was performed on the mid left anterior descending artery segment. The lesion stenosis prior to intervention was 80% with JONAH 3 flow. A 6F XB LAD 3.5 Guide Catheter was used to engage the left ostium. A IG: BMW 190cm Interventional Guidewire was used to cross the lesion. BALLOON DILATION A Balloon catheter Mini Trek RX 2.0 X 8 was inserted and inflated up to 10.00atm for 7seconds. STENT DEPLOYMENT A drug-eluting stent Napoleon RX Stent 2.0X12mm was inserted and inflated up to 10.00atm for 6seconds. Additional Inflation: 10.00atm for 5seconds. Final angiography reveals 0 % stenosis with JONAH 3 flow. PCI Technique Lesion 2 Percutaneous Coronary Intervention was performed on the first obtuse marginal branch segment. Patient was preloaded with Angiomax IV 16 ml. The lesion stenosis prior to intervention was 90% with JONAH 3 flow. A 6F XB LAD 3.5 Guide Catheter was used to engage the left ostium. A IG: BMW 190cm Interventional Guidewire was used to cross the lesion. Balloon Dilation A Balloon catheter Mini Trek RX 2.0 X 8 was inserted and inflated up to 10.00atm for 7seconds. Additional Inflation: 12.00atm for 5seconds. Stent Deployment A drug-eluting stent Emanuel RX Stent 2.0X8mm was inserted and inflated up to 12.00atm for 5seconds. Post Stent Deployment Balloon Dilation A Balloon catheter Mini Trek RX 2.0 X 8 was inserted and inflated up to 14.00atm for 11seconds. Additional Inflation: 15.00atm for 9seconds. Final angiography reveals 0 % stenosis with JONAH 3 flow. Conclusion [address] [address] CARDIAC CATH REPORT Name: DANIKAISAIAS Eugene Room: [address] IN M.R.#: [id number] Admission: 02/10/20 Attend Phys: Gina Delarosa Discharge: Date of : 50 Report #: [id number] 1. Three-vessel coronary artery disease as outlined above. 2. Moderately elevated left ventricular end-diastolic pressure. 3. Successful PCI with deployment of a drug-eluting stent at site of 80% mid LAD stenosis with 0% residual narrowing and JONAH-3 flow to the distal vessel 4. Successful PCI with deployment of drug-eluting stent at site of 90% stenosis in the midportion of the first marginal branch of the circumflex with 0% residual narrowing and JONAH-3 flow to the distal vessel Recommendations Cardiac Risk Reduction Program Aggressive Medical Therapy 1. Aggressive risk factor modification. 2. Percutaneous coronary intervention to the mid LAD, first obtuse marginal branch and distal right coronary artery in staged fashion. Medications Administered Aspirin (any) Prasugrel Diagnostic Cath Approved by: Duane Cortes MD Date/Time: 02/14/2020 09:51:37 <ELECTRONICALLY SIGNED> By: Suman Hernadez MD, [facility] 02/14/2052 0952Jojaquan Hernadez MD, FACC /INF
[2020-02-14 10:14] VITALS: BP 143/62
[2020-02-14 11:48] VITALS: BP 143/62
[2020-02-14 12:29] VITALS: BP 138/72
[2020-02-14 12:42] VITALS: BP 138/72
--- NOTE | 2020-02-14 17:08 | EKG ---
[place] [address] ELECTROCARDIOGRAM REPORT Name: ISAIAS GARNICA Room: [address] IN ..#: [id number] Admission: 02/10/20 Attend Phys: Braydon Aragon Discharge: 02/14/20 Date of : 50 Date of Service: 02/13/20 1533 Report #: [id number] THIS REPORT FOR: //name// [facility] Test Date: 2020-02-13 Test Time: 15:33:15 Pat Name: ISAIAS GARNICA Department: Room: [address] Gender: F Manager Utility: : 1950 Requested By: Duane Cortes Order Number: [id number] Reading MD: Suman Hernadez Measurements Intervals [place] Rate: 60 P: 25 TX: 170 QRS: -39 QRSD: 100 T: 19 QT: 424 QTc: 424 Interpretive Statements Sinus rhythm Left axis deviation Consider anterior infarct Compared to ECG 02/10/2020 15:51:45 Left-axis deviation now present Left anterior fascicular block no longer present Myocardial infarct finding still present Electronically Signed On 02-14-2020 17:07:56 CDT by Suman Hernadez [email or web address] <ELECTRONICALLY SIGNED> By: Suman Hernadez MD, [facility] 02/14/20 1707 1533 1533 Suman Hernadez MD, FAC /EPI
--- NOTE | 2020-02-14 17:10 | EKG ---
[place] [address] ELECTROCARDIOGRAM REPORT Name: ISAIAS GARNICA Room: [address] IN [facility].#: [id number] Admission: 02/10/20 Attend Phys: Braydon Aragon Discharge: 02/14/20 Date of : 50 Date of Service: 02/14/20 0800 Report #: [id number] THIS REPORT FOR: //name// [facility] Test Date: 2020-02-14 Test Time: 08:00:42 Pat Name: ISAIAS GARNICA Department: Room: [address] Gender: F Traffic Court Magistrate: : 1950 Requested By: Duane Cortes Order Number: [id number] Reading MD: Suman Hernadez Measurements Intervals [place] Rate: 69 P: 13 [place]: 167 QRS: -41 QRSD: 100 T: 52 QT: 410 QTc: 440 Interpretive Statements Sinus rhythm Left anterior fascicular block Abnormal R-wave progression, late transition Compared to ECG 02/13/2020 15:33:15 Left anterior fascicular block persists Myocardial infarct finding no longer present Electronically Signed On 02-14-2020 17:10:46 CDT by Suman Hernadez [email or web address] <ELECTRONICALLY SIGNED> By: Suman Hernadez MD, [facility] 02/14/20 1710 08 0800 Suman Hernadez MD, FAC /EPI
== END 2020-02-14 14:10 | disposition home or self-care (01) | DRG 247 ==
LOC: M.ERS 15:46 → M.TBA-ER 18:19 → M.2W 18:19
PROVIDERS: Family Medicine; Internal Medicine; Internal Medicine Cardiovascular Disease; Internal Medicine Gastroenterology; ADMIT Internal Medicine; ATTEND Internal Medicine
PROC: 0DJ08ZZ Inspection of Upper Intestinal Tract, Via Natural or Artificial Opening Endoscopic (ICD-10-PCS; 2020-02-12)
PROC: 4A023N7 Measurement of Cardiac Sampling and Pressure, Left Heart, Percutaneous Approach (ICD-10-PCS; principal; 2020-02-13)
PROC: 0W9G3ZZ Drainage of Peritoneal Cavity, Percutaneous Approach (ICD-10-PCS; principal; 2020-02-13)
PROC: 027135Z Dilation of Coronary Artery, Two Arteries with Two Drug-eluting Intraluminal Devices, Percutaneous Approach (ICD-10-PCS; principal; 2020-02-13)
PROC: B211YZZ Fluoroscopy of Multiple Coronary Arteries using Other Contrast (ICD-10-PCS; principal; 2020-02-13)
DX: I25.10 Atherosclerotic heart disease of native coronary artery without angina pectoris (principal); R18.8 Other ascites; K76.6 Portal hypertension; E11.9 Type 2 diabetes mellitus without complications; I10 Essential (primary) hypertension; K74.60 Unspecified cirrhosis of liver; E78.5 Hyperlipidemia, unspecified; E87.70 Fluid overload, unspecified; I83.90 Asymptomatic varicose veins of unspecified lower extremity; K76.0 Fatty (change of) liver, not elsewhere classified; Z20.828 Contact with and (suspected) exposure to other viral communicable diseases; I25.2 Old myocardial infarction; Z95.5 Presence of coronary angioplasty implant and graft; Z88.8 Allergy status to other drugs, medicaments and biological substances; Z09 Encounter for follow-up examination after completed treatment for conditions other than malignant neoplasm; Z86.711 Personal history of pulmonary embolism; Z87.81 Personal history of (healed) traumatic fracture; Z82.49 Family history of ischemic heart disease and other diseases of the circulatory system; Z79.82 Long term (current) use of aspirin; Z79.899 Other long term (current) drug therapy; Z98.84 Bariatric surgery status

== ENCOUNTER 2020-03-12 10:34 | Observation (INO) | payer MEDICARE ==
[~2020-03-12] VITALS: Ht 165.1 cm; Wt 106.6 kg
[2020-03-12] VITALS (9 sets, daily range): BP systolic 99–140; BP diastolic 58–76
--- NOTE | ~2020-03-12 | H ---
[address] [address] HISTORY AND PHYSICAL Name: ISAIAS GARNICA [place] Room: [address] Eleazar Echeverria#: [id number] Admission: 03/12/20 Attend Phys: Duane Cortes MD Discharge: 03/13/20 Date of : 50 Report #: [id number] THIS REPORT FOR: //name// cc: Anastasia Medina MD, Paula V. MD ~ Please refer to the History and Physical performed in the physician's office. By: 1452Medical Records Staff [facility] /PAUL
[~2020-03-12 10:34] MED LIST changes: +BENADRYL25 MG PO; +EFFIENT10 MG PO; +IBUPROFEN 800800 M1 PO; +NEURONTIN 300M300 M2 PO; +SPIRONOLACTONE25 M1 PO; +VITAMIN C125 MG PO
[2020-03-12 11:53] LABS: HEMATOCRIT 41.3 % (37.0-47.0); HEMOGLOBIN 13.6 gm/dL (12.0-15.0); MCH 28.6 pg (26.0-34.0); MCHC 32.9 g/dL (28.0-37.0); MCV 86.8 fL (80.0-100.0); MPV 7.5 fl. (7.2-11.1); RBC 4.75 mil/uL (4.20-5.00); RDW-CV 15.5 % (10.5-14.5); WBC 7.5 thou/uL (4.0-11.0)
[2020-03-12 12:39] LABS: ANION GAP 8 mmol/L (7-16); BUN 12 mg/dL (7-18); CALCIUM 9.2 mg/dL (8.5-10.1); CHLORIDE 106 mmol/L (98-107); CO2 23 mmol/L (21-32); CREATININE 0.8 mg/dL (0.6-1.3); GLUCOSE 123 mg/dL (70-99); SODIUM 137 mmol/L (136-145)
[2020-03-12 12:40] LABS: APTT 23.6 Seconds (25.0-31.3); PROTIME 10.1 Seconds (9.20-11.50)
[2020-03-12 12:44] LABS: ALBUMIN 2.9 g/dL (3.4-5.0); ALKALINE PHOSPHATASE 93 U/L (46-116); CHOLESTEROL 130 mg/dL (<200); HDL CHOLESTEROL 44 mg/dL (>40); LDL CHOLESTEROL 68 mg/dL (<100); SERUM ASSESSMENT Clear; SGOT 41 U/L (15-37); SGPT 25 U/L (30-65); TOTAL BILIRUBIN 0.6 mg/dL (<0.1-1.0); TOTAL PROTEIN 7.6 g/dL (6.4-8.2); TRIGLYCERIDE 94 mg/dL (<150); VLDL 19 mg/dL (<40)
[2020-03-13 04:00] VITALS: BP 102/57
[2020-03-13 08:45] VITALS: BP 126/65
[2020-03-13 12:07] LABS: HEMATOCRIT 30.4 % (37.0-47.0); MCH 28.4 pg (26.0-34.0); MCHC 31.5 g/dL (28.0-37.0); MCV 90.1 fL (80.0-100.0); MPV 7.3 fl. (7.2-11.1); RBC 3.38 mil/uL (4.20-5.00); RDW-CV 15.9 % (10.5-14.5); WBC 8.7 thou/uL (4.0-11.0)
[2020-03-13 12:09] LABS: HEMOGLOBIN 9.6 gm/dL (12.0-15.0)
[2020-03-13 12:30] LABS: ALBUMIN 2.4 g/dL (3.4-5.0); CALCIUM 8.4 mg/dL (8.5-10.1); TOTAL BILIRUBIN 0.4 mg/dL (<0.1-1.0); TOTAL PROTEIN 6.1 g/dL (6.4-8.2)
[2020-03-13 12:42] VITALS: BP 126/65
--- NOTE | 2020-03-13 13:43 | EKG ---
[place] [address] ELECTROCARDIOGRAM REPORT Name: ISAIAS GARNICA [address] [id number] Admission: 03/12/20 Attend Phys: Duane Cortes, Discharge: Date of : 50 Date of Service: 03/12/20 1151 Report #: [id number] THIS REPORT FOR: //name// [facility] Test Date: 2020-03-12 Test Time: 11:51:14 Pat Name: ISAIAS GARNICA Department: Room: [facility] Gender: F Etl Application Developer: : 1950 Requested By: Duane Cortes Order Number: [id number] Reading MD: Suman Hernadez Measurements Intervals [place] Rate: 94 P: -26 NM: 151 QRS: -33 QRSD: 107 T: 89 QT: 342 QTc: 428 Interpretive Statements Sinus rhythm Left axis deviation Consider anterior infarct Nonspecific T abnormalities, lateral leads Compared to ECG 02/14/2020 08:00:42 Left-axis deviation now present Myocardial infarct finding now present T-wave abnormality now present Electronically Signed On 03-13-2020 13:42:47 CDT by Suman Hernadez [email or web address] <ELECTRONICALLY SIGNED> By: Suman Hernadez MD, FACC 03/13/20 1342 1151 1151 Suman Hernadez MD, FACC /EPI
--- NOTE | 2020-03-13 13:45 | EKG ---
[place] [address] ELECTROCARDIOGRAM REPORT Name: ISAIAS GARNICA [address] [id number] Admission: 03/12/20 Attend Phys: Duane Cortes, Discharge: Date of : 50 Date of Service: 03/12/20 1830 Report #: [id number] THIS REPORT FOR: //name// [facility] Test Date: 2020-03-12 Test Time: 18:30:59 Pat Name: ISAIAS GARNICA Department: Room: [facility] Gender: F Postal Supervisor: AYDIN : 1950 Requested By: Duane Cortes Order Number: [id number] Reading MD: Suman Hernadez Measurements Intervals [place] Rate: 90 P: -33 [place]: 161 QRS: -44 QRSD: 98 T: 59 QT: 360 QTc: 441 Interpretive Statements Sinus rhythm Left anterior fascicular block Consider anterior infarct Baseline wander in lead(s) I Compared to ECG 03/12/2020 11:51:14 Left anterior fascicular block now present Left-axis deviation no longer present T-wave abnormality no longer present Myocardial infarct finding still present Electronically Signed On 03-13-2020 13:45:18 CDT by Suman Hernadez [email or web address] <ELECTRONICALLY SIGNED> By: Suman Hernadez MD, FACC 03/13/20 1345 29 29 Suman Hernadez MD, [facility] /EPI
--- NOTE | 2020-03-13 13:47 | EKG ---
[place] [address] ELECTROCARDIOGRAM REPORT Name: ISAIAS GARNICA [address] [id number] Admission: 03/12/20 Attend Phys: Duane Cortes, Discharge: Date of : 50 Date of Service: 03/13/20 0428 Report #: [id number] THIS REPORT FOR: //name// [facility] Test Date: 2020-03-13 Test Time: 04:28:25 Pat Name: ISAIAS GARNICA Department: Room: [facility] Gender: F Hand Bulldozer: J[place] : 1950 Requested By: Duane Cortes Order Number: [id number] Reading MD: Suman Hernadez Measurements Intervals [place] Rate: 94 P: 52 [place]: 137 QRS: -44 QRSD: 95 T: 50 QT: 347 QTc: 434 Interpretive Statements Sinus rhythm Left anterior fascicular block Consider anterior infarct Compared to ECG 03/12/2020 11:51:14 Left anterior fascicular block persist T-wave abnormality no longer present Myocardial infarct finding still present Electronically Signed On 03-13-2020 13:47:37 CDT by Suman Hernadez [email or web address] <ELECTRONICALLY SIGNED> By: Suman Hernadez MD, FACC 03/13/20 1347 0428 Suman Hernadez MD, FAC /EPI
--- NOTE | 2020-03-13 14:40 | CARD ---
[address] [address] CARDIAC CATH REPORT Name: ISAIAS GARNICA Room: [address] Eleazar Echeverria#: [id number] Admission: 03/12/20 Attend Phys: Duane Cortes MD Discharge: Date of : 50 Report #: [id number] THIS REPORT FOR: //name// cc: Anastasia Medina MD, Paula V. MD ~ APPROVED REPORT Study performed: 03/12/2020 12:56:08 Patient Details Patient Status: Out-Patient Room #: The patient is a 69 year-old female Event Personnel Duane Cortes Advanced Manufacturing Consultant,Suman Hernadez Repairer [employer]ines, Estela España RN It Infrastructure Consultant, Kya Caro RTR Monitor, Nae Reeves RTR Scrub, Surya Boothe PROFESSOR OF LEGAL STUDIES Scrub, Leigh Morfin Monitor Doctors Sophia and Maricarmen Procedures Performed Art Access - R femoral artery, Coronary Angiography, IVAN Place w/wo Plasty Single RCA , Hemostasis with Angioseal and Manual Pressure Indication Unstable angina Previous Procedures/Diagnoses Previous PCI Admission/Lab Medications/Medications given during procedure Angiomax IV 16 ml, Angiomax Drip IV 37.4 ml per hr Procedure Narrative The patient was brought electively to the Cardiac Catheterization Laboratory and was prepped and draped in a sterile manner. The right femoral was infiltrated with 1% Lidocaine subcutaneous anesthesia. A 6Fr X 23cm Sheath sheath was inserted into the right femoral artery. Coronary angiography was performed using coronary diagnostic catheters. The right coronary system was accessed and visualized with a 6F JR4 catheter. The left coronary system was accessed and visualized with a 6F JL5 catheter. Pre-demployment femoral angiogram was performed . Closure device was deployed with a 6 Fr Angioseal STS. The patient tolerated the procedure well and there were no [facility] [address] [place] [address] CARDIAC CATH REPORT Name: ISAIAS GARNICA Room: [address] M.R.#: [id number] Admission: 03/12/20 Attend Phys: Duane Cortes MD Discharge: Date of : 50 Report #: [id number] complications associated with the procedure. There was no hematoma. Multiple sheaths and exchanges performed during procedure.(6F/45cm Facundo Flexor,6F Iuka) Two right femoral artery access sites obtained. Mynx and Angioseal closure devices deployed on two right femoral artery access sites. Mynx failed and manual pressure held until hemostasis obtained. Intraoperative Conscious Sedation Sedation start time: 14:06 Case end Time: 17:52 Fentanyl 275 mcg Versed 10 mg Fluoro Time: 71.1 minutes Dose: DAP 146419 cGycm2 7525.58 mGy Contrast Type and Amount: Visipaque 600 ml Diagnostic Cath Left Main 0% narrowing LAD 30% proximal and mid LAD narrowing with a widely patent mid LAD stent Circumflex Nondominant vessel with a widely patent mid first marginal stent Right Coronary Large dominant vessel with 75% proximal narrowing and 90% tubular stenosis of the distal right coronary Left Ventriculography Left Ventriculography was not performed. Hemodynamics The aortic pressure is 121/59 mmHg with a mean of 84 mmHg. PCI Technique Lesion Anticoagulation was achieved with Angiomax. Patient was preloaded with Angiomax IV 16 ml. Percutaneous coronary intervention was performed on the Distal right coronary artery. The lesion stenosis prior to intervention was 90% with JONAH 3 flow. A 6F IM 90CM Guide Catheter was used to engage the right ostium. A BMW 190cm and ProwaterFlex 180cm Interventional Guidewire was used to cross the lesion. BALLOON DILATION A Balloon catheter Trek RX 2.5 X 12 was inserted and inflated up to 12.00atm for 10seconds. Additional Inflation: 8.00atm for 21seconds. Additional Inflation: 10.00atm for 22seconds[place] [address] CARDIAC CATH REPORT Name: ISAIAS GARNICA Room: [address] Eleazar Echeverria#: [id number] Admission: 03/12/20 Attend Phys: Duane Cortes MD Discharge: Date of : 50 Report #: [id number] A drug-eluting stent Emanuel RX Stent 2.0X18mm was inserted and inflated up to 18.00atm for 9seconds. Additional Inflation: 22.00atm for 10seconds. Final angiography reveals 0 % stenosis with JONAH 3 flow. COMMENTS The PCI was technically complex by virtue of marked calcification and tortuosity and a connolly's crook right coronary configuration. This created significant complexity in wiring the distal vessel. In order to achieve satisfactory stent positioning, I utilized a 5.5 Serbian guideliner within the previously utilized WOODS guide, ultimately achieving satisfactory distal stent positioning and deployment. PCI Technique Lesion 2 Percutaneous Coronary Intervention was performed on the Proximal right coronary artery. The lesion stenosis prior to intervention was 75% with JONAH 3 flow. Stent Deployment A drug-eluting stent Emanuel RX Stent 2.07X67jb was inserted and inflated up to 18atm for 15seconds. Final angiography reveals 10 % stenosis with JONAH 3 flow. Conclusion 1. Significant coronary arteries characterized by the following: A 75% proximal with 90% distal right coronary stenosis B 30% proximal and mid LAD narrowing with a widely patent mid LAD stent C nondominant circumflex with a widely patent mid first marginal stent 2. Successful PCI with deployment of drug-eluting stents at the sites of 75% proximal and 90% distal right coronary stenosis with 10 and 0% residual narrowings and JONAH-3 flow to the distal vessel Recommendations Cardiac Risk Reduction Program [place] [address] CARDIAC CATH REPORT Name: ISAIAS GARNICA [place] Room: [address] Eleazar Echeverria#: [id number] Admission: 03/12/20 Attend Phys: Duane Cortes MD Discharge: Date of : 50 Report #: [id number] Medications Administered Aspirin (any) Prasugrel Diagnostic Cath Approved by: Duane Cortes MD Date/Time: 03/13/2020 14:35:11 <ELECTRONICALLY SIGNED> By: Suman Hernadez MD, FACC 03/13/20 1439 1439 [id number] Hernadez MD, FACC /INF
[2020-03-13 15:30] VITALS: BP 92/56
[2020-03-13 18:06] VITALS: BP 92/56
--- NOTE | 2020-03-17 13:00 | D ---
[address] [address] DISCHARGE SUMMARY Name: ISAIAS GARNICA Room: [address] Eleazar Echeverria#: [id number] Admission: 03/12/20 Attend Phys: Duane Cortes MD Discharge: 03/13/20 Date of : 50 Report #: [id number] THIS REPORT FOR: //name// cc: Anastasia Medina MD, Paula V. MD ~ CC: Duane Medina MD DISCHARGE DIAGNOSES: 1. Unstable angina. 2. Coronary artery disease with recent percutaneous coronary intervention to the left anterior descending and circumflex coronary arteries. 3. Hypertension. 4. History of dyslipidemia. 5. Type 2 diabetes mellitus. 6. History of pulmonary embolism in 2019. 7. 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 PROCEDURES DURING THE HOSPITALIZATION: 1. Coronary angiography. 2. Percutaneous coronary intervention to the right coronary artery. 3. Telemetry monitoring. DISCHARGE MEDICATIONS: Vitamin C 125 mg daily, aspirin 81 mg daily, vitamin D 5000 units daily, Benadryl 25 mg b.i.d. p.r.n., fenofibrate 200 mg daily, furosemide 40 mg daily, gabapentin 300 mg b.i.d., ibuprofen 800 mg b.i.d. p.r.n. subcutaneous insulin as directed, Tresiba insulin b.i.d. as directed, isosorbide mononitrate 60 mg daily, losartan 100 mg daily, metformin 1000 mg b.i.d. resume tomorrow, metoprolol succinate 50 mg daily, multivitamin tablet daily, Nitrostat sublingual p.r.n., Effient 10 mg daily. HOSPITAL COURSE: The patient was brought to the cardiac catheterization electively for a staged procedure. She had recent intervention to the circumflex and LAD. She had residual disease in the distal right coronary artery. The patient underwent percutaneous coronary intervention with drug-eluting stent placement to the distal right coronary artery and proximal (connolly's hook) right coronary artery. The patient was observed in the hospital overnight and discharged the following day. The patient's procedure was a fairly complicated beginning with access. The patient has a very calcified iliac/femoral arterial system. Access was significantly difficult, requiring multiple dilators and ultimately the insertion of a long sheath 6-English for access. 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 Ultimately, a drug-eluting stent was [place] [address] DISCHARGE SUMMARY Name: ISAIAS GARNICA [place] Room: [address] Eleazar Echeverria#: [id number] Admission: 03/12/20 Attend Phys: Duane Cortes MD Discharge: 03/13/20 Date of : 50 Report #: [id number] coronary artery through an intraguide sheath. Once the sheath was removed, there was haziness in the connolly's hook of the right coronary artery, prompting a drug-eluting stent placement to this area. The patient had a moderate amount of blood loss throughout the procedure. Her hemoglobin was 13 on admission and the following day 9.2. The patient's recovery was fairly uneventful. She is being discharged uneventfully. DISPOSITION: The patient will follow up in the Cardiology office in 2 weeks. <ELECTRONICALLY SIGNED> By: Duane Cortes MD, FACC 03/17/20 1300 1729 [id number] Cortes MD, FACC /nt
== END 2020-03-13 18:36 | disposition home or self-care (01) ==
LOC: M.CL 10:34 → M.2W 15:01 → M.TBA-CV 15:01 → M.ICU 18:53 → M.2W 03-13 00:37
PROVIDERS: ADMIT Internal Medicine Cardiovascular Disease; ATTEND Internal Medicine Cardiovascular Disease
DX: I25.110 Atherosclerotic heart disease of native coronary artery with unstable angina pectoris (principal); E11.9 Type 2 diabetes mellitus without complications; E78.5 Hyperlipidemia, unspecified; C48.2 Malignant neoplasm of peritoneum, unspecified; I10 Essential (primary) hypertension; Z79.82 Long term (current) use of aspirin; Z79.899 Other long term (current) drug therapy; Z86.711 Personal history of pulmonary embolism; Z79.4 Long term (current) use of insulin; Z20.828 Contact with and (suspected) exposure to other viral communicable diseases